=== PATIENT | female | born 1995 | race Caucasian/White ===

== ENCOUNTER 2017-11-14 20:05 | Inpatient (IN) | payer OTHER ==
--- NOTE | 2017-11-14 20:14 | EDPHY ---
H & P Source: Patient Exam Limitations: No limitations Time Seen by Provider: 11/14/17 20:13 HPI/ROS: HPI: This is a 22-year-old female who presents with Chief Complaint: depression Location:psych Quality: Depression and suicidal ideation Duration: Weeks Signs and Symptoms: no auditory and visual command hallucinations, + suicidal ideation with a plan, no homicidal ideation, not paranoid, + decreased appetite , + anhedonia Timing: Acute on chronic Severity: Moderate to severe Context: Patient has a history of major depression diagnosed approximately 2-3 years ago and started on antidepressant medications as well as gender dysmorphia disorder presents with worsening severe depression to the point that his roommates are worried about him. After much prompting and questioning, patient reports that he has been going into the kitchen and getting knives and bring him back into his room with intention to sliced his arms, wrist, neck in order to his life. He reports that he questions his own existence. Does not see a reason to continue on living. Reports that had a similar approximately 2- 3 months ago that was related to testosterone use and was decreased from twice weekly to once weekly. Poor family support but strong friend support. Denies prior psychiatric inpatient admission. Reports compliance on psychiatric medications. Modifying Factors: None Comment: ROS: see HPI Constitutional: No fever, no chills, no weight loss Eyes: No blurred vision Respiratory: No shortness of breath, no cough Cardiovascular: No chest pain Gastrointestinal: No nausea, no vomiting, no diarrhea Genitourinary: No dysuria Extremities: No myalgias Neurologic: No weakness, no numbness Skin: No rashes Hematologic: No bruising, no bleeding MEDICAL/SURGICAL/SOCIAL HISTORY: Medical history: Major depression, transgender Surgical history: Rose teeth removal Social history: Employed. CONSTITUTIONAL: Untidy, reserved, flat affect young adult identifies as male, awake and alert, no obvious distress HEENT: Atraumatic and normocephalic, PERRL, EOMI. Tympanic membranes clear. Oropharynx clear, no exudate and moist pink mucosa. Airway patent. No lymphadenopathy. No meningismus. Cardiovascular: Normal S1/S2, regular rate, regular rhythm, without murmur rub or gallop. PULMONARY/CHEST: Symmetrical and nontender. Clear to auscultation bilaterally. Good air movement. No accessory muscle usage. ABDOMEN: Soft, nondistended, nontender, no rebound, no guarding, no peritoneal signs, no masses or organomegaly. No CVAT. EXTREMITIES: 2/2 pulses, strength 5/5, no deformities, no clubbing, no cyanosis or edema. NEUROLOGICAL: no focal neuro deficits. GCS 15. SKIN: Warm and dry, no erythema. no rash. Good capillary refill. PSYCH: Fair eye contact, no flight of ideas, organized thought process, poor insight and judgment, no auditory and visual command hallucinations, + suicidal ideation with a plan, no homicidal ideation, not paranoid (Rosy Garcia) Constitutional: Initial Vital Signs Temperature (C) 37.1 C 11/14/17 20:16 Heart Rate 75 11/14/17 20:16 Respiratory Rate 18 11/14/17 20:16 Blood Pressure 136/78 H 11/14/17 20:16 O2 Sat (%) 96 11/14/17 20:16 O2 Delivery Mode Room Air Allergies/Adverse Reactions: No Known Allergies Allergy (Unverified 11/14/17 20:15) Home Medications: Medication Instructions Recorded FLUoxetine 11/14/17 Lamictal 11/14/17 Testosterone 11/14/17 Medical Decision Making ED Course/Re-evaluation: Placed on M1 hold upon arrival due to severe major depression and suicidal ideation with a plan. Labs and UDS ordered. Patient calm and cooperative in no interventions are required at this time. 2125: Labs and UDS reviewed. Medically clear for mental health evaluation. 0015: End Of Shift. Signed out to Dr. Camejo pending mental health evaluation and final disposition. (Rosy Garcia) 1223AM: Patient has been accepted at [address] [place] [address] Nieves. Appropriate transfer will be setup. (Tod Camejo) Differential Diagnosis: Differential diagnosis includes but is not limited to functional severe depression, suicidal ideation, medication adverse effects. (Rosy Garcia) - Data Points Laboratory Results: Laboratory Results 11/14/17 20:50 11/14/17 20:50 11/14/17 11/14/17 11/14/17 21:10 20:50 20:50 WBC RBC Hgb Hct MCV MCH MCHC RDW Plt Count MPV Neut % (Auto) Lymph % (Auto) Mcminn % (Auto) Eos % (Auto) Baso % (Auto) Nucleat RBC Rel Count Absolute Neuts (auto) Absolute Lymphs (auto) Absolute Monos (auto) Absolute Eos (auto) Absolute Basos (auto) Absolute Nucleated RBC Immature Gran % Immature Gran # Sodium 142 mEq/L mEq/L (135-145) Potassium 4.6 mEq/L mEq/L (3.5-5.2) Chloride 103 mEq/L mEq/L (97-110) Carbon Dioxide 23 mEq/l mEq/l (22-31) Anion Gap 16 mEq/L mEq/L (8-16) BUN 12 mg/dL mg/dL (7-23) Creatinine 0.7 mg/dL mg/dL (0.6-1.0) Estimated GFR > 60 Glucose 90 mg/dL mg/dL (70-100) Calcium 10.2 mg/dL mg/dL (8.5-10.4) Beta HCG, Qual NEGATIVE Urine Opiates Screen NEGATIVE (NEGATIVE) Urine Barbiturates NEGATIVE (NEGATIVE) Ur Phencyclidine Scrn NEGATIVE (NEGATIVE) Ur Amphetamine Screen NEGATIVE (NEGATIVE) U Benzodiazepines Scrn NEGATIVE (NEGATIVE) Urine Cocaine Screen NEGATIVE (NEGATIVE) U Marijuana (THC) Screen NEGATIVE (NEGATIVE) Ethyl Alcohol < 10 mg/dL mg/dL (0-10) 11/14/17 20:50 WBC 9.54 10^3/uL H 10^3/uL (3.80-9.50) RBC 4.98 10^6/uL 10^6/uL (4.18-5.33) Hgb 16.6 g/dL H g/dL (12.6-16.3) Hct 47.4 % H % (38.0-47.0) MCV 95.2 fL fL (81.5-99.8) MCH 33.3 pg pg (27.9-34.1) MCHC 35.0 g/dL g/dL (32.4-36.7) RDW 11.8 % % (11.5-15.2) Plt Count 270 10^3/uL 10^3/uL (150-400) MPV 10.1 fL fL (8.7-11.7) Neut % (Auto) 62.0 % % (39.3-74.2) Lymph % (Auto) 27.1 % % (15.0-45.0) Mcminn % (Auto) 8.9 % % (4.5-13.0) Eos % (Auto) 1.2 % % (0.6-7.6) Baso % (Auto) 0.6 % % (0.3-1.7) Nucleat RBC Rel Count 0.0 % % (0.0-0.2) Absolute Neuts (auto) 5.91 10^3/uL 10^3/uL (1.70-6.50) Absolute Lymphs (auto) 2.59 10^3/uL 10^3/uL (1.00-3.00) Absolute Monos (auto) 0.85 10^3/uL H 10^3/uL (0.30-0.80) Absolute Eos (auto) 0.11 10^3/uL 10^3/uL (0.03-0.40) Absolute Basos (auto) 0.06 10^3/uL 10^3/uL (0.02-0.10) Absolute Nucleated RBC 0.00 10^3/uL 10^3/uL (0-0.01) Immature Gran % 0.2 % % (0.0-1.1) Immature Gran # 0.02 10^3/uL 10^3/uL (0.00-0.10) Sodium Potassium Chloride Carbon Dioxide Anion Gap BUN Creatinine Estimated GFR Glucose Calcium Beta HCG, Qual Urine Opiates Screen Urine Barbiturates Ur Phencyclidine Scrn Ur Amphetamine Screen U Benzodiazepines Scrn Urine Cocaine Screen U Marijuana (THC) Screen Ethyl Alcohol Departure - Departure Disposition: [facility] IP Clinical Impression: Gender identity disorder, unspecified, Severe major depression without psychotic features, Suicidal ideations Condition: Fair
[2017-11-14 21:02] LABS: PLATELET COUNT 270 10^3/uL (150-400)
[2017-11-15] MEDS ORDERED: LORazepam 0.5 MG TAB PO PRN (00:30)
[2017-11-15] MEDS ORDERED: MAGNESIUM HYDROXIDE 30 ML UDCUP PO PRN (00:30)
[2017-11-15] MEDS ORDERED: MAG HYDROX/AL HYDROX/SIMETH 30 ML UDCUP PO PRN (00:30)
[2017-11-15] MEDS ORDERED: ACETAMINOPHEN 325 MG TAB PO PRN (00:30)
[2017-11-15] MEDS ORDERED: NICOTINE POLACRILEX 2 MG GUM B PRN (00:30)
[2017-11-15] MEDS: FLUoxetine 10 MG CAP PO SCH (08:42)
[2017-11-15] MEDS ORDERED: lamoTRIgine 25 MG TAB PO SCH (09:00)
[2017-11-15] MEDS ORDERED: lamoTRIgine 25 MG TAB PO ONE (15:00)
[2017-11-15] MEDS ORDERED: QUEtiapine FUMARATE 25 MG TAB PO PRN (15:01)
--- NOTE | 2017-11-15 15:36 | BCON ---
[f rep st] BEHAVIORAL HEALTH CONSULTATION INTERNAL MEDICINE CONSULTATION DATE OF CONSULTATION: 11/15/2017 REFERRING PHYSICIAN: Tree Nieves MD REASON FOR REFERRAL: Medical clearance for inpatient behavioral health stay. HISTORY OF PRESENT ILLNESS: This patient came to the emergency department at the encouragement of his roommates. He had had increased suicidal ideation and reportedly was collecting knives from the kitchen and bringing them back into his room with intention to slice his arms, wrist and neck in order to end his life. He was evaluated by the mental health team and admitted for further psychiatric care on this unit. Currently, he has no acute complaints. PAST MEDICAL HISTORY: [id number] transgender. PAST SURGICAL HISTORY: He has no history of surgeries. MEDICATIONS: 1. He is on testosterone replacement with testosterone enanthate intramuscular 25 mg every 2 weeks. 2. Lamotrigine 50 mg p.o. daily. 3. Duloxetine 30 mg p.o. daily. He reports his last testosterone injection was November 11, and that he has monitoring by his primary care physician approximately every 3 months. He has been on testosterone replacement for about 2 months. FAMILY HISTORY: Noncontributory in an otherwise healthy young person. REVIEW OF SYSTEMS: A 10-point review of systems was conducted and was negative. PHYSICAL EXAM: VITAL SIGNS: Blood pressure is 121/56, heart rate is 75, respiratory rate is 14, oxygen saturation is 98% on room air, temperature is 36.4 degrees centigrade. His weight is 68 kg for a body mass index of 24.2. GENERAL: This is a well-nourished, well-developed, phenotypic male, cooperative and in no acute distress. HEENT: Extraocular movements are intact. Pupils are equal, round, reactive to light. Mucous membranes are moist. Dentition is in good condition. He has an uncrowded airway, Mallampati class 1. NECK: Supple. HEART: Regular rate and rhythm with no murmurs, rubs , or gallops. LUNGS: Clear to auscultation bilaterally. ABDOMEN: Benign. EXTREMITIES: There is no cyanosis, clubbing, or edema. NEUROLOGIC: He is alert and oriented x3. Cranial nerves 2-12 are grossly intact. There is no focal weakness and sensation is intact to light touch. LABORATORY STUDIES: Drawn in the emergency department, CBC revealed an elevated white blood cell count at 9.54 with a minor elevation of absolute monocytes at 0.85 with the upper limit of normal being 0.8. Hemoglobin and hematocrit were mildly elevated at 16.6 and 47.4, with the upper limit of normal being 16.3 and 47. Serum chemistry revealed normal renal function and electrolytes. Beta hCG was negative for . Serum toxicology was negative for ethyl alcohol, and urine toxicology was negative for any substances of abuse. ASSESSMENT/RECOMMENDATIONS: 1. Mental health issues, pending further evaluation and management per Psychiatry and the mental health team. 2. Polycythemia. Query whether this is due to testosterone replacement; as we are 4 days into his current 2-week cycle, it is not an appropriate time to either measure a peak or trough of testosterone. It is likely that his primary care provider's plan of lab testing in November, though less frequent than per guidelines from the Endocrine Society, is probably appropriate. The primary care provider should be informed that he has mild polycythemia at present and it may be due to the testosterone replacement. I see no medical contraindications to this patient's continued stay on the inpatient behavioral health unit or to any psychiatric medications or procedures. Thank you very much for including me in the care of this patient, and please do not hesitate to contact me or the hospitalist service should there be need for further medical evaluation. /[id number]/MODL MTDD
--- NOTE | 2017-11-16 01:50 | BHP ---
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 CHIEF COMPLAINT: "Just felt a lot more down for the past week." HISTORY OF PRESENT ILLNESS: Patient reports that approximately 2 months ago, she started testosterone treatment for gender reassignment. She has been getting testosterone injections weekly. Over the past week, she had worsening depression with low mood, low energy, anhedonia, feeling hopeless, helpless, with suicidal thoughts, brief thoughts of cutting herself with a knife. She denies any actual self-harm. She denies violent thoughts. She denies feeling irritable or agitated or having racing thoughts but feels 'on edge.' She reports increased sleep. She denies drug or alcohol abuse. She reports she has been taking fluoxetine 30 mg and Lamictal 50 mg for about 2 years and has otherwise been stable. She denies any major stressors in her life. She reports getting along with her roommates as well as her coworkers at work. The patient denies any recent impulsive or reckless behavior. She denies decreased need for sleep. She denies paranoia or hallucinations, or any violent thoughts. She denies any recent change in her physical health, other than the testosterone injections. PAST PSYCHIATRIC HISTORY: The patient reports no prior psychiatric hospitalizations or any past suicide attempts. She had one ER visit 3 years ago for suicidal thoughts while in [place]. She denies any history of violence toward others or arrests. She denies any history of drug or alcohol addiction. She does report that she has had symptoms of major depressive disorder with hypomanic episodes since adolescence. She reports she has been taking fluoxetine 30 mg and Lamictal 50 mg for the past 2 years. She sees an outpatient provider named,Shantell Henderson - nurse practitioner and a therapist, named [facility]. She does report in the past being prescribed Zyprexa, but having excessive sedation. ALLERGIES: No known drug allergies. MEDICAL HISTORY: She denies any traumatic brain injury, seizures, surgeries, or any chronic medical problems. She has been taking testosterone injections once a week from her primary care provider for gender reassignment. SOCIAL HISTORY: He reports he was raised by her parents who later . He denies verbal, physical, or sexual abuse as a child. Her brother and father live in [place]. Her mother lives in [place]. He is single with no children. He identifies as a male for about 2 years. 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 He has a college degree, no history of being in the . FAMILY HISTORY: Patient denies any family history of severe mental illness, suicide, or substance abuse. She has a twin brother who is alive and well. LABS: CBC was normal. BMP was normal. Serum beta HCG was negative. Urine tox screen was negative in the ER. VITAL SIGNS: Patient weight was 68 kg, blood pressure 121/56, heart rate 75, respiratory rate 14, pulse ox 98% on room air, temperature is afebrile. MSE: Alert, white female, with short, cropped hair, who is ambulatory, with a tattoo on her left arm. Cooperative, pleasant. Speech is regular rate and rhythm. Patient describes his mood as depressed. Affect is restricted. Thoughts are organized. Reports brief thoughts of suicide by cutting himself yesterday but denies suicidal thoughts today.. Denies thoughts to hurt others. He denies paranoia or hallucinations. Memory is fair, insight is fair. Judgment is questionable. ASSESSMENT: Bipolar disorder, type 2, most recent episode depressed. Rule out steroid-induced mood disorder with depressive features. The overall assessment is the patient has a history of hypomania as well as major depressive episodes for many years but has been stable for 2 years prior to the past 2 weeks. He currently appears calm and organized with good insight. Rcent intense suicidal thinking approximately 2 months after starting testosterone injections, it is unclear if this precipitated mood episodes or not. PLAN: 1. Added AST, ALT, and TSH to the blood work. 2. The patient is on an M1 hold to monitor for suicidality and a danger to herself. She is on suicide precautions on the unit. 3. Patient signed an CLARA for outpatient provider, Shantell Henderson, nurse practitioner at [facility], , left a message requesting a call back for collateral information. 4. Discussed the risks and benefits of starting Seroquel for bipolar depression versus increasing Lamictal for bipolar depression versus increasing Fluoxetine dose. The patient does not want to retry olanzapine to be combined with fluoxetine at this time. She does not have any recent manic symptoms and prefers to try increased Lamictal dose for bipolar depression. Therefore, we will continue fluoxetine 30 mg and increase the patient's Lamictal from 50 mg to 75 mg daily. Discussed with the patient the risks of Paredes-Marcial syndrome with Lamictal. 5. Discussed the risks and benefits of PRN Seroquel if she develops severe agitation on the unit. Ordered Seroquel 12.5 mg, which is half of a 25 mg tablet, p.r.n. for anxiety. 6. I discussed with the patient that testosterone can induce mood episodes and I discussed with the patient the possibility of working with her primary care doctor to possibly lower the dose of the testosterone injection to reduce the risk of psychiatric side effects from this medication in the future. /[id number]/MODL MTDD
[2017-11-16] MEDS: FLUoxetine 10 MG CAP PO SCH (08:44)
[2017-11-16] MEDS: lamoTRIgine 25 MG TAB PO SCH (08:44)
--- NOTE | 2017-11-16 08:55 | SOAPPROG ---
SOAP Progress Note Assessment/Plan: Assessment: Bipolar Disorder type 2 depressive episode Possible Steroid/Testosterone induced mood disorder Gender Dysphoria Patient admitted on M-1 for suicidal thoughts to cut self with a knife. Patient is calm this AM but had continued suicidal thoughts yesterday PM. Plan: Patient agrees to voluntary treatment Continue Fluoxetine 30mg PO QAM. Discussed risk of worsening SI and mixed/ bipolar symptoms with Fluoxetine Continue Lamictal 75mg Qday, increased 11/15/17, discussed risk of Feng Marcial Syndrome Seroquel 12.5mg [id number] PRN severe agitation Supportive therapy. Reviewed supports, coping skills, strengths (intelligent, hard working, multiple supportive friends) Patient given handout regarding medical and psychiatric risks of testosterone; discussed possibly seeing an log hauler in the future 11/16/17 08:59 Subjective: CC: "I slept better" "still depressed but not as intense this morning" Patient reports yesterday PM having brief intense suicidal thoughts. Denies plan to harm self on unit. Reports negative thoughts about her gender transition and feeling ashamed that she is different. Reports multiple roommates and friends are supportive of her gender transition. Reports tolerating increased Lamictal yesterday 'felt a little more calm.' Reports sleeping excessively with fatigue in weaks prior to admission. Reports benefit from groups and talking to staff. Denies any somatic complaints. Objective: Vital Signs Temp Pulse Resp BP Pulse Ox 36.6 C 82 14 126/84 H 99 11/16/17 06:00 11/16/17 06:00 11/16/17 06:00 11/16/17 06:00 11/16/17 06:00 Alert transgender female with short hair and tattoos. Speech RRR. Mood restricted, briefly dysphoric. Thoughts organized. Had suicidal thoughts last night without plan/intent. Denies HI, paranoia, AH. Fair insight, appropriate judgment. AST, ALT WNL. TSH 3.1 Staff report patient last PM was anxious and dysphoric but slept overnight; attending groups yesterday on unit and eating well. - Time Spent With Patient Time Spent With Patient: 30 minutes - Pending Discharge Pending Discharge Within 24 Hours: No Pending Discharge Within 48 Hours: No ICD10 Worksheet Patient Problems: Problems Problem Status Onset Bipolar 2 disorder Acute Gender identity disorder, unspecified Acute Suicidal ideations Acute
[2017-11-17] MEDS: FLUoxetine 10 MG CAP PO SCH (08:41)
[2017-11-17] MEDS: lamoTRIgine 25 MG TAB PO SCH (08:42)
[2017-11-17] MEDS: CETIRIZINE 10 MG TAB PO SCH (08:58)
--- NOTE | 2017-11-17 10:12 | SOAPPROG ---
SOAP Progress Note Assessment/Plan: Assessment: Bipolar Disorder type 2 - depressive episode Possible Steroid/Testosterone induced mood disorder Gender Dysphoria Seasonal Allergies - takes Zyrtec Patient admitted on M-1 for suicidal thoughts to cut self with a knife. Patient is calm this AM but has continued suicidal thoughts and reports severe dysphoria. Plan: Patient is voluntary Discussed risk/benefit of adding Seroquel for bipolar depression versus increasing Prozac versus referral for ECT Increase Fluoxetine 40mg PO QAM. Discussed risk of worsening SI and mixed/ bipolar symptoms with Fluoxetine Continue Lamictal 75mg Qday, increased 11/15/17, reviewed discussed risk of Feng Marcial Syndrome. Offer Seroquel 12.5mg [id number] PRN severe agitation or mood lability Check baseline HgbA1c or Lipids Supportive therapy. Reviewed supports, coping skills, strengths Monitor mood stability, danger to self Hold Testosterone until seen by endocrinology 11/17/17 10:14 Subjective: CC: "Not good, real down" Patient reports disrupted sleep and feeling tired this AM. Reports over past 24 hours having severe sadness with recurrent thoughts and images of cutting arm with razor or knife. Denies plan to hurt himself on unit. Reports feeling hopeless and overwhelmed and feeling ashamed that he is transgender and having difficulty transitioning to being male from female. Reports fear of medication side effects. Denies racing thoughts or agitation or severe irritability. Objective: Vital Signs Temp Pulse Resp BP Pulse Ox 36.6 C 77 14 121/55 H 98 11/17/17 06:00 11/17/17 06:00 11/17/17 06:00 11/17/17 06:00 11/17/17 06:00 Alert, ambulatory without tremors or weakness. Speech RRR. Thoughts organized. Affect dyphoric at times. Mood "not good, real down" Thoughts organized. Reports SI with intrusive images of cutting arms with knives or razors. Denies HI, AH, or paranoia. Fair insight. Staff report patient slept 9.5 hours. Calm and avoiding groups, appearing anxious and dysphoric at times, reporting continued SI to staff. - Time Spent With Patient Time Spent With Patient: 30 minutes - Pending Discharge Pending Discharge Within 24 Hours: No Pending Discharge Within 48 Hours: No ICD10 Worksheet Patient Problems: Problems Problem Status Onset Bipolar 2 disorder Acute Gender identity disorder, unspecified Acute Suicidal ideations Acute
[2017-11-17] MEDS ORDERED: FLUoxetine 10 MG CAP PO ONE (10:30)
[2017-11-18] MEDS: FLUoxetine 20 MG CAP PO SCH (08:33)
[2017-11-18] MEDS: lamoTRIgine 25 MG TAB PO SCH (08:33)
[2017-11-18] MEDS: CETIRIZINE 10 MG TAB PO SCH (08:34)
[2017-11-18] MEDS ORDERED: FLUoxetine 10 MG CAP PO SCH (09:00)
--- NOTE | 2017-11-18 13:12 | SOAPPROG ---
SOAP Progress Note Assessment/Plan: Assessment: Bipolar Disorder type 2 - depressive episode Possible Steroid/Testosterone induced mood disorder Gender Dysphoria Seasonal Allergies - takes Zyrtec Patient admitted on M-1 for suicidal thoughts to cut self with a knife. Patient is calm this AM, had SI yesterday, today reports continued depressive symptoms but appears more hopeful and future oriented and has started safety plan worksheet with therapist support. Plan: Patient is voluntary Continue Fluoxetine 40mg PO QAM, increased 11/17/17 Continue Lamictal 75mg Qday, increased 11/15/17 Offer Seroquel 12.5mg [id number] PRN severe agitation or mood lability. Patient doesn't want to take scheduled at this time Discussed low fat diet, exercise, having PCP recheck cholesterol in the future Reviewed supports, coping skills, strengths Monitor mood stability, danger to self Refer to [facility]; continue low dose Testosterone 25mg injections weekly, discussed medical and psychiatric risks Patient sees boat pilot Shantell Henderson 11/18/17 13:12 Subjective: CC: "Depressed, really intense sometimes" Patient reports yesterday having severe dysphoria and suicidal thoughts. Reports this AM feeling less distressed and more hopeful, but continues to feel sad most of the time. 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 Denies racing thoughts, agitation, or irritability. Reports wanting to continue current medications. Reports good visits with friends. Reports hospitalization 'cracked open a lot of emotions from the past few years, I hit rock bottom, I don't want to be around other patients pain.' Reports starting to work on safety plan. Request weekly testosterone injection, despite possible risks, unless directed by her PCP. Objective: Vital Signs Temp Pulse Resp BP Pulse Ox 36.6 C 68 12 107/51 L 99 11/17/17 06:00 11/18/17 06:00 11/18/17 06:00 11/18/17 06:00 11/18/17 06:00 Alert, no tremors or weakness. Speech RRR. Mood 'depressed, really intense sometimes' affect briefly dysphoric. Thoughts organized. Reports brief SI yesterday without plan or intent. Denies SI this AM. Denies HI or violent thoughts. Denies AH or paranoia. Fair insight. Appropriate judgment. Staff report overnight, isolative and not attending groups yesterday, dysphoric and anxious at times, reported SI yesterday. - Time Spent With Patient Time Spent With Patient: 30 minutes - Pending Discharge Pending Discharge Within 24 Hours: No Pending Discharge Within 48 Hours: Yes Pending Discharge Date: 11/20/17 Pending Discharge Time: 11:00 ICD10 Worksheet Patient Problems: Problems Problem Status Onset Bipolar 2 disorder Acute Gender identity disorder, unspecified Acute Suicidal ideations Acute
[2017-11-18] MEDS ORDERED: TESTOSTERONE IM 100 MG/ML SYRINGE IM ONE (18:00)
[2017-11-19 06:39] VITALS: BP 114/54; PULSE 78; RESP 14; TEMP 98; O2SAT 96
[2017-11-19] MEDS: lamoTRIgine 25 MG TAB PO SCH (08:48)
[2017-11-19] MEDS: FLUoxetine 20 MG CAP PO SCH (08:48)
[2017-11-19] MEDS: CETIRIZINE 10 MG TAB PO SCH (08:48)
--- NOTE | 2017-11-19 14:25 | BDS ---
[f rep st] BEHAVIORAL HEALTH DISCHARGE SUMMARY ADMITTING DIAGNOSIS: 1. Bipolar disorder type 2, most recent episode depressed, rule out steroid induced mood disorder with depressive features. 2. History of gender dysphoria. IDENTIFICATION: This is a 22-year-old single white female who is transgender and goes by the name Yosi, and identifies as a male. 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 BRIEF PSYCHIATRIC HISTORY: The patient is currently in outpatient mental health treatment with psychiatric nurse practitioner, Shantell Henderson, phone number [phone] at [facility]. The patient also has a therapist named Indigo Nath. The patient has no prior history of psychiatric hospitalizations. He had an emergency room visit 3 years ago for suicidal ideation in [place] but was not hospitalized. The patient denies any history of drug or alcohol addiction or any past suicide attempts or history of violence toward others. The patient has been taking Lamictal 50 mg daily and fluoxetine 30 mg daily for the past 2 years. BRIEF MEDICAL HISTORY: The patient denies traumatic brain injury, seizures, surgeries or chronic medical problems other than having seasonal allergies for which he takes [id number] Zyrtec. The patient started testosterone injections 2 months ago from his primary care provider. ALLERGIES: No known drug allergies. The patient does report an adverse reaction to Zyprexa with excessive sedation in the past. REASON FOR ADMISSION: The patient presented to the emergency department reporting feeling increasingly depressed, hopeless, sad, down, with low mood, low energy, anhedonia, increased sleep, and recurrent suicidal thoughts of cutting his arm. He denied violent thoughts, hallucinations or paranoia or any recent manic symptoms. He denied substance abuse. INITIAL EXAMINATION: On admission, he was alert, ambulatory, without focal weakness or tremors. Short hair with a tattoo on his arm. He was cooperative and pleasant. His speech was regular rate and rhythm. His thoughts were organized. He reported recurrent suicidal thoughts to cut his arm. He denied violent thoughts, hallucinations, or paranoia. Had fair memory, fair insight but impaired judgment. HOSPITAL COURSE: The patient reported worsening mood instability since starting testosterone injections, but primarily was having depression symptoms. The patient declined a trial of Seroquel for bipolar depression. His Lamictal was increased from 50 mg to 75 mg daily. His fluoxetine was increased from 30 mg to 40 mg daily. The patient was calm and appropriate, initially isolative and dysphoric, and reporting hopelessness and suicidal thoughts. Later, was appearing more euthymic, was able to attend groups, appeared more hopeful. He was able to complete a safety plan including describing numerous supports, numerous coping skills and numerous reasons to live. The patient had marked improvement in mood and affect and a remission of his suicidal thinking. The patient did not have any problems with agitation, self-harm or violence on the unit, was calm and appropriate. He did receive a testosterone injection of 25 mg on , 11/18/2017. The patient was given extensive information about the risks of testosterone worsening mood disorder symptoms. The patient was given information about the risks and benefits of trying Seroquel for bipolar depression, but he repeatedly declined a trial of this medication. He has given information about the risks of Lamictal including life-threatening Paredes-Marcial syndrome. The patient tolerated an increase of Lamictal from 50 to 75 mg. The patient was given information about the risks of fluoxetine causing defects, miscarriage, agitation, increased suicidal thoughts, and bipolar disorder symptoms. He tolerated an increase of the fluoxetine dose to 40 mg without major side effects. Prior to discharge, the patient is an alert transgender male in no acute distress, ambulatory, without weakness or tremors. His speech is regular rate and rhythm. His thoughts are organized. He denies any thoughts to hurt himself or others. He denies any hallucinations or paranoia. Has good insight and appropriate judgment. The patient reports having numerous strengths including being kind, working, having numerous supports of friends and coworkers, and wanting to help people in the future. CONSULTATIONS: The patient was seen by an internal medicine physician, a hospitalist and Dr. Hutton, on 11/15/2017. There were no procedures performed on the unit. LABORATORY STUDIES: There are no labs pending. The patient had a white blood cell count 9.5, hemoglobin 16.6, platelet count 270. Sodium 142, potassium 4.6 , creatinine 0.7, glucose 90. Hemoglobin A1c 5.0, calcium 10.2, AST 31, ALT 33 , triglyceride 76, HDL 56, LDL 138. The patient had a TSH of 3.1. Serum beta hCG was negative. Urine tox screen was negative. DISCHARGE DIAGNOSIS: 1. Bipolar disorder type 2, most recent episode depressed, severe. 2. History of gender dysphoria, rule out testosterone induced or steroid induced mood disorder. DISCHARGE MEDICATIONS: Fluoxetine 40 mg p.o. q.a.m., Lamictal 75 mg p.o. q.a.m. , testosterone injections per primary care provider, Zyrtec 10 mg over-the- counter by mouth daily. DISPOSITION: The patient is leaving the unit with a close friend who will stay with him through the weekend and assist him in getting followup treatment. FOLLOWUP: The patient has a psychiatric medication management appointment with Shantell Henderson, nurse practitioner, also therapy appointment. The patient was given information about [facility] for followup regarding testosterone dosing. The patient was also given information about the [facility], and intensive outpatient program services. LEGAL STATUS: The patient was admitted on an M1 hold and then converted to voluntary status. ADDENDUM: The patient was given information about the elevated LDL level in his blood test. He was counseled on eating a low animal fat diet and increasing fruits, vegetables and fish and having a primary care provider recheck it in 6 months. /[id number]/MODL MTDD
== END 2017-11-19 14:10 | disposition home or self-care (01) | DRG 885 ==
LOC: EEVIPCON 20:05 → BBEH 11-15 03:45
PROVIDERS: ADMIT Psychiatry & Neurology Psychiatry; ATTEND Psychiatry & Neurology Psychiatry
DX: F31.81 Bipolar II disorder (principal)
CPT/HCPCS: 80305; G0480; J1071

== ENCOUNTER 2017-11-23 10:46 | Emergency (ER) | payer OTHER ==
[2017-11-23 10:50] VITALS: BP 122/68; PULSE 77; RESP 16; TEMP 98.2; O2SAT 95
--- NOTE | 2017-11-23 11:16 | EDPHY ---
H & P Stated Complaint: Rash on back after dosage increased on lamictal Time Seen by Provider: 11/23/17 11:15 HPI/ROS: HPI: This is a 22-year-old female who presents with Chief Complaint: Rash on back after dosage increased on Lamictal Location: Back Quality: Rash Duration: 1-3 days Signs and Symptoms: No pruritus, no discharge, no pain, no warmth, no radiation , no upper respiratory symptoms Timing: Gradual onset Severity: Mild Context: Patient is currently transitioning from female to male and taking testosterone supplementation. She wears a chest binder to decrease the size of her breasts. She has a history of bipolar disorder and over the last week has increased her dosage of Lamictal. Over the last several days she has noticed a rash on her upper back and shoulders. She also noted some redness and swelling to the palms of both of her hands. She was worried that she may be having adverse reaction to her Lamictal. She denies any fever/pain/radiation/drainage/ weakness. After further questioning patient admits that she has never washed her chest binder and has been several years since she purchased it. Modifying Factors: None Comment: ROS: see HPI Constitutional: No fever, no chills, no weight loss Eyes: No blurred vision Respiratory: No shortness of breath, no cough Cardiovascular: No chest pain Gastrointestinal: No nausea, no vomiting, no diarrhea Genitourinary: No dysuria Extremities: No myalgias Neurologic: No weakness, no numbness Skin: No rashes Hematologic: No bruising, no bleeding MEDICAL/SURGICAL/SOCIAL HISTORY: Medical history: bipolar, transitioning female to male transgender Surgical history: Denies Social history: Unemployed. CONSTITUTIONAL: Well-developed, well-nourished, white adult awake and alert, no obvious distress HEENT: Atraumatic and normocephalic, PERRL, EOMI. Tympanic membranes clear. Oropharynx clear, no exudate and moist pink mucosa. Airway patent. No lymphadenopathy. No meningismus. Cardiovascular: Normal S1/S2, regular rate, regular rhythm, without murmur rub or gallop. PULMONARY/CHEST: Symmetrical and nontender. Clear to auscultation bilaterally. Good air movement. No accessory muscle usage. ABDOMEN: Soft, nondistended, nontender, no rebound, no guarding, no peritoneal signs, no masses or organomegaly. No CVAT. EXTREMITIES: 2/2 pulses, strength 5/5, no deformities, no clubbing, no cyanosis or edema. NEUROLOGICAL: no focal neuro deficits. GCS 15. SKIN: Warm and dry, scattered small white comedones noted on her upper back where her chest binder rests. No petechiae. No fluctuance. Good capillary refill. Source: Patient Exam Limitations: No limitations - Personal History LMP (Females 10-55): Over 28 Days Ago Current Tetanus Diphtheria and Acellular Pertussis (TDAP): Yes - Medical/Surgical History Hx Asthma: No Hx Chronic Respiratory Disease: No Hx Diabetes: No Hx Cardiac Disease: No Hx Renal Disease: No Hx Cirrhosis: No Hx Alcoholism: No Hx HIV/AIDS: No Hx Splenectomy or Spleen Trauma: No Other PMH: bipolar, transitioning female to male transgender - Social History Smoking Status: Never smoked Constitutional: Initial Vital Signs Temperature (C) 36.8 C 11/23/17 10:46 Heart Rate 77 11/23/17 10:46 Respiratory Rate 16 11/23/17 10:46 Blood Pressure 122/68 H 11/23/17 10:46 O2 Sat (%) 95 11/23/17 10:46 O2 Delivery Mode Room Air Allergies/Adverse Reactions: No Known Allergies Allergy (Verified 11/23/17 10:46) Home Medications: Medication Instructions Recorded Testosterone IM [Testosterone 25 mg IM MO 11/15/17 100mg/ml IM inj (*)] Cetirizine [ZyrTEC 10 mg (*)] 10 mg PO DAILY tab 11/19/17 FLUoxetine [Prozac 20 MG (*)] 40 mg PO DAILY #30 cap 11/19/17 lamoTRIgine [LaMICtal] 75 mg PO DAILY 30 Days tab 11/19/17 Medical Decision Making ED Course/Re-evaluation: Rash is clearly consistent with acne likely related to Tc cerumen supplementation combined with the chest binder never being wash. No signs of cellulitis/Feng Marcial syndrome/neurovascular compromise/ anaphylaxis/allergic reaction Advised proper hygiene, [id number] acne products, wash chest binder This patient was seen under the supervision of my secondary supervising physician. I evaluated care for this patient independently. Differential Diagnosis: Differential diagnosis includes but is not limited to Feng Marcial syndrome, cellulitis, viral exanthem, acne. Departure - Departure Disposition: Home, Routine, Self-Care Clinical Impression: Acne comedone Condition: Good Instructions: Benzoyl Peroxide (On the skin), Salicylic Acid (On the skin) Additional Instructions: Wash your binder once or twice a week. Wash your back with salicylic acid or benzyl peroxide solution for acne. Referrals: Araceli Workman MD [Primary Care Provider] - As per Instructions
== END 2017-11-23 11:57 | disposition home or self-care (01) ==
LOC: EEVIPCON 10:46
DX: L70.8 Other acne (principal)